=== PATIENT | male | born 1985 | race African-American/Black ===

== ENCOUNTER 2018-01-17 04:56 | Emergency (ER) | payer BC ==
[~2018-01-17] VITALS: Ht 185.4 cm; Wt 98.4 kg
--- NOTE | ~2018-01-17 | EKG ---
[place] [address] [facility] [place] [address] ELECTROCARDIOGRAM REPORT Name: KYLE EDDY Room #: KARLENE Aburto#: [id number] Admission: 01/17/18 Attend Phys: Discharge: Date of : 85 Report #: [id number] THIS REPORT FOR: //name// [facility] ED Test Date: 2018-01-17 Test Time: 05:52:13 Pat Name: KYLE EDDY Department: Room: Gender: Diet Therapist: SHANTARACHEL : 1985 Requested By: Terry Andino Order Number: [id number] MD: Wilmer Martinez Measurements Intervals [place] Rate: 64 P: 28 UT: 136 QRS: 19 QRSD: 116 T: -8 QT: 408 QTc: 421 Interpretive Statements Sinus rhythm Borderline T abnormalities, inferior leads No previous ECG available for comparison Electronically Signed On 01-17-2018 8:27:37 CDT by Wilmer Martinez [email or web address] <ELECTRONICALLY SIGNED> By: Wilmer Martinez MD, [facility] 01/17/18 [id number] Wilmer Martinez MD, [facility] /EPI
[2018-01-17 04:57] VITALS: BP 145/100
[2018-01-17 05:27] LABS: URINE BILIRUBIN NEGATIVE (Negative); URINE BLOOD TRACE (Negative); URINE CLARITY CLEAR; URINE COLOR YELLOW; URINE GLUCOSE-RANDOM* NEGATIVE (Negative); URINE KETONES NEGATIVE (Negative); URINE LEUKOCYTES-REFLEX NEGATIVE (Negative); URINE NITRITE-REFLEX NEGATIVE (Negative); URINE PROTEIN (DIPSTICK) 1+ (Negative); URINE SPECIFIC GRAVITY >= 1.030 (1.005-1.035); URINE UROBILINOGEN 0.2 E.U./dl (0.2-1.0)
[2018-01-17 05:28] LABS: ABSOLUTE NEUTROPHILS 6.4 thou/uL (1.4-8.2); BASOPHILS 0.6 % (0.0-2.0); EOSINOPHILS 1.8 % (0.0-3.0); HEMATOCRIT 49.4 % (42.0-52.0); LYMPHOCYTES 32.4 % (24.0-44.0); MCHC 34.5 g/dL (28.0-37.0); MCV 89.8 fL (80.0-100.0); MONOCYTES 6.2 % (1.0-8.0); PLATELET COUNT 294 thou/uL (150-400); RBC 5.49 mil/uL (4.50-6.00); WBC 10.8 thou/uL (4.0-11.0)
[2018-01-17 05:35] LABS: AMP/METHAMP Negative (Negative); BARBITURATES Negative (Negative); BENZODIAZEPINES Negative (Negative); COCAINE Negative (Negative); METHADONE Negative (Negative); OPIATES Negative (Negative); PCP Negative (Negative)
[2018-01-17 05:38] LABS: ANION GAP 12 mmol/L (7-16); BUN 8 mg/dL (7-18); CALCIUM 9.2 mg/dL (8.5-10.1); CHLORIDE 100 mmol/L (98-107); CO2 25 mmol/L (21-32); CREATININE 1.4 mg/dL (0.7-1.3); GLUCOSE 130 mg/dL (74-106); POTASSIUM 3.7 mmol/L (3.5-5.1); SODIUM 137 mmol/L (136-145)
[2018-01-17 05:43] LABS: BACTERIA-REFLEX None Seen /HPF (None Seen); CASTS None Seen /LPF (None Seen); CRYSTALS None Seen /LPF (None Seen); MUCUS 4-6 Moderate strn/LPF (None Seen); SQUAMOUS 0-3 Few /LPF (0-3); URINE RBC 0-2 Rare /HPF (0-2); URINE WBC-REFLEX None Seen /HPF (0-5)
[2018-01-17 05:47] LABS: ALBUMIN 4.3 g/dL (3.4-5.0); LIPASE 213 U/L (73-393); SGOT 27 U/L (15-37); SGPT 43 U/L (30-65); TOTAL BILIRUBIN 0.3 mg/dL (<0.1-1.0); TROPONIN-I <0.06 ng/mL (<0.06)
[2018-01-17] MEDS ORDERED: TRAMADOL 50 MG50 MG PO (05:55)
[2018-01-17] MEDS ORDERED: PEPCID20 MG PO (05:55)
[2018-01-17] MEDS ORDERED: ZOFRAN ODT8 MG PO (05:55)
== END 2018-01-17 06:30 | disposition home or self-care (01) ==
LOC: ER 04:56
PROVIDERS: Emergency Medicine
DX: R11.2 Nausea with vomiting, unspecified (principal); R19.7 Diarrhea, unspecified; R10.13 Epigastric pain